=== PATIENT | male | born 1965 | race Caucasian/White ===

== ENCOUNTER 2024-09-22 09:10 | Outpatient (CLI) | payer OTHER | END 2024-09-22 09:11 | disposition home or self-care (01) | LOC: CSHSLEEP 09:10 → EDSTATUS 09:27 | PROVIDERS: ATTEND Family Medicine | DX: G47.33 Obstructive sleep apnea (adult) (pediatric) (principal); R53.83 Other fatigue; I25.10 Atherosclerotic heart disease of native coronary artery without angina pectoris; I11.9 Hypertensive heart disease without heart failure; R06.83 Snoring | CPT/HCPCS: 95800 ==